=== PATIENT | female | born 1975 | race Caucasian/White ===

== ENCOUNTER → 2023-07-25 13:15 | Outpatient (REF) | payer BC, SELFPAY | LOC: HWWDC 13:15 | PROVIDERS: ATTENDING PHYSICIAN Internal Medicine | DX: Z12.31 Encounter for screening mammogram for malignant neoplasm of breast (principal) | CPT/HCPCS: 77063; 77067 ==

== ENCOUNTER → 2024-01-01 14:35 | Outpatient (REF) | payer BC, SELFPAY | LOC: HWRAD 14:35 | PROVIDERS: ATTENDING PHYSICIAN Internal Medicine | DX: R07.82 Intercostal pain (principal); R10.32 Left lower quadrant pain; R14.0 Abdominal distension (gaseous); R07.1 Chest pain on breathing; M54.6 Pain in thoracic spine | CPT/HCPCS: 71046; 71100; 74018 ==

== ENCOUNTER → 2024-11-05 10:09 | Outpatient (REF) | payer OTHER, SELFPAY | LOC: HWWDC 10:09 | PROVIDERS: ATTENDING PHYSICIAN Obstetrics & Gynecology Gynecology; FAMILY PHYSICIAN Internal Medicine | DX: Z12.31 Encounter for screening mammogram for malignant neoplasm of breast (principal) | CPT/HCPCS: 77063; 77067 ==